=== PATIENT | female | born 1985 | race Caucasian/White ===

== ENCOUNTER 2019-01-06 14:39 | Inpatient (IN) | payer SELFPAY ==
[2019-01-06] MEDS ORDERED: Morphine 4 MG/ML VIAL ONE (16:09)
[2019-01-06] MEDS ORDERED: Ondansetron PF 4 MG/2 ML Vial ONE ×3 (16:19→21:31)
--- NOTE | 2019-01-06 19:08 | MRI ---
MRI CERVICAL SPINE WITHOUT CONTRAST: History: Injury. [place] hit head. Comparison: CT cervical spine same day. FINDINGS: Cerebellar tonsils terminate at the level of the foramen magnum. There is airfluid level of the sphen oid sinus with sella variant anatomy. There is a moderate left sided maxillary sinus air fluid level. There is straightening of the cervical spine. There is mild loss of normal signal at C5-6 and C6-7. A t C5-6 is a 9 mm x 4 mm central and bilateral paracentral disc protrusion with abutment of the ventra l cord and narrowing of the spinal canal to approximately 5 mm. Cord edema at the level of C5-6. Ther e is mild subligamentous edema at C5-6 posteriorly adjacent to the disc protrusion. At all other leve ls, there is no neural foraminal or spinal canal narrowing. The paraspinal musculature is symmetric. No edema. No evidence for ligamentous strain. No facet capsu le injury. IMPRESSION: Central and bilateral paracentral disc protrusion at C5-6 with adjacent subligamentous edema. The pro trusion measures 9 mm in transverse and 4 mm in AP dimension with cord abutment and spinal canal narr owing to approximately 5 mm. Low grade edema within the cord. Urgent neurosurgical consultation is re commended. Code CRColin Rehman 6:10 p.m. POS: [facility]
[2019-01-06] MEDS ORDERED: Fentanyl 100 MCG/2 ML VIAL ONE (20:25)
[2019-01-06] MEDS ORDERED: Morphine 4 MG/ML VIAL SLOW IVP PRN ×2 (22:15)
[2019-01-06] MEDS ORDERED: Dextrose 50% Abboject 50 ML SYRINGE SLOW IVP PRN (22:15)
[2019-01-06] MEDS ORDERED: Ondansetron ODT 4 MG TAB PO PRN (22:15)
[2019-01-06] MEDS ORDERED: hydrALAZINE 20 MG/ML VIAL SLOW IVP PRN (22:15)
[2019-01-06] MEDS ORDERED: Ondansetron PF 4 MG/2 ML Vial IVP PRN (22:15)
[2019-01-06] MEDS ORDERED: Promethazine HCl 25 MG/ML VIAL IM PRN ×2 (22:15)
[2019-01-06] MEDS ORDERED: Dextrose 5% in Water 1,000 ML IV PRN (22:15)
[2019-01-06] MEDS ORDERED: Cyclobenzaprine 10 MG TAB PO PRN (22:15)
[2019-01-06 22:24] VITALS: BMI 21.6
[2019-01-06] MEDS ORDERED: Famotidine 20 MG TAB PO SCH (22:30)
[2019-01-06] MEDS ORDERED: Scopolamine 1.5 mg/72 hour Patch TD SCH (23:00)
[2019-01-06] MEDS: Acetaminophen 1,000 MG in Premix Bag 1 BAG IVPB SCH (23:17)
[2019-01-07] MEDS: Sodium Chloride 0.9% 1,000 ML IV SCH ×2 (00:03→09:19)
--- NOTE | 2019-01-07 01:41 | HP ---
ATTENDING SURGEON: Dr. Marie. CONSULTATIONS: Neurosurgery, Dr. Young. mobile tester, Dr. Ivey. 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 She denies any loss of consciousness, but definitely felt dizzy immediately after impact and was able to ambulate away from the gait and get help. She was taken to the emergency department in [place], where she underwent evaluation and examination who was noted to have contusion to her left supraorbital and frontal scalp areas, maxillary sinus fracture, left orbital roof fracture and basilar skull fracture, central disk herniation at C5-C6 in which she was subsequently then transported to our facility to undergo evaluation by our neurosurgery team. Once here, the patient underwent MRI urgently which confirmed the disk protrusion at C5-C6, with significant spinal canal narrowing, at which time we were asked to admit the patient for pain control and plan surgical procedure in the morning. ALLERGIES: NONE. CURRENT MEDICATIONS: None. PAST MEDICAL HISTORY: None. PAST SURGICAL HISTORY: . SOCIAL HISTORY: The patient denies drug, tobacco, or alcohol use. She is , has one child and does multiple jobs. REVIEW OF SYSTEMS: A 10-point review of systems is negative as otherwise stated. PHYSICAL EXAMINATION: VITAL SIGNS: Blood pressure 105/64, heart rate 61, respirations 16, oxygen saturation is 96% on room air, and temperature is 98.7. GENERAL: The patient is resting comfortably in bed. She is awake, alert, and oriented x3. Myels Coma Scale is 14. The patient has -1 for eye opening. She reports feeling nauseated and has her eyes closed. HEENT: Head shows a contusion to the left forehead and left-sided periorbital ecchymosis. Eyes, extraocular motion intact. PERRLA bilaterally. Ears are atraumatic without discharge. Nose has blood in bilateral nares, more on the left. Oropharynx is clear. NECK: Immobilized and [place] collar was not removed for this examination per neurosurgery's directions. Her trachea is midline. There is no JVD. CHEST: Clear to auscultation with good inspiratory and expiratory efforts. HEART: Regular rate and rhythm. ABDOMEN: Soft, flat, nontender with active bowel sounds. PELVIS: Stable. EXTREMITIES: Neurovascularly intact x4. The patient does have some tingling sensation in her left upper extremity down to the level of her index and middle finger. BACK: By report, atraumatic and nontender. There are no labs to report at this time. RADIOGRAPHIC FINDINGS: CT of the brain without contrast shows extensive left supraorbital and frontal scalp hematoma, opacification of the left frontal sinus, opacification of the left ethmoid air cells and left maxillary sinus. Findings are concerning for left medial and possible inferior orbital fractures. There also appears to be a small amount of gas seen extending into the left supraorbital region and the front subdural or subarachnoid space seen just superior to the cribriform plate and just above the left orbital roof. CT of the facial bones without contrast shows again the left periorbital soft tissue hematoma. There is a nondisplaced fracture seen through the posterior wall of the left frontal sinus. There is also a fracture which extends into the orbital roof. There is a small fragment of bone inferiorly displaced adjacent to the superior rectus muscle seen in the mid orbit. CT of the C-spine without contrast shows no evidence of fracture or traumatic subluxation involving the C-spine. Central disk herniation at C5-C6 with potential for mass-effect upon the cervical cord. MRI of the C-spine without contrast shows central and bilateral paracentral disk protrusion at C5-C6 with adjacent subligamentous edema. The protrusion measures 9 mm in transverse and 4 mm in AP diameter with cord abutment and spinal canal narrowing to approximately 5 mm. ASSESSMENT AND PLAN: 1. Status post livestock trauma, blunt trauma to the left forehead. 2. Central disk herniation at C5-C6 with radiculopathy. 3. Facial contusions. 4. Facial fractures. PLAN: Plan will be to admit the patient to the surgical floor. She will have strict bedrest, pain control, pulmonary toilet, gastritis, mechanical VTE prophylaxis. The patient has been fitted with a well-fitting [place] collar. The evaluation, examination, laboratory, and radiographic findings were discussed with Dr. Marie prior to this dictation. The patient will be n.p.o. after midnight and plan for a surgical procedure tomorrow afternoon with Dr. Young. Job ID: [id number]
[2019-01-07] MEDS: CEFAZOLIN 2 GM in Premix Bag 1 BAG IVPB SCH ×4 (01:43→23:20)
--- NOTE | 2019-01-07 02:48 | CON ---
DATE OF CONSULTATION: This is a 50-minute initial patient evaluation of which greater than 50% of the exam was spent in counseling and coordinating the patient's care. Remainder of the exam was spent in review of the patient's medical records and formulation of treatment plan as well as review of appropriate imaging studies. CHIEF COMPLAINT: Status post blunt facial trauma with left arm decreased sensation, and large acute C5-C6 herniated disk. HISTORY OF PRESENT ILLNESS: Ms. Monge is a pleasant 33-year-old female who presents to [place] [facility] for the above complaints. 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 She immediately began to experience headaches, neck pain, and decreased sensation in the left hand, mainly the first and second fingers. The patient is a transfer from [facility]. She currently complains of headache as well as significant neck pain. She also complains of ulnar aspect decreased sensation with paresthesias as well as decreased sensation and paresthesias into the first, second, and part of the third finger. She states that she has never had any symptoms like this before in regard to severe neck pain and paresthesias in the left arm and these began after she sustained her trauma. Review of the patient's head CT shows small anterior region basilar skull fracture with small amount of pneumocephalus, but no associated hemorrhage. Review of the patient's cervical spine CT shows concerning for herniated disk at C5-C6. An MRI was ordered given the patient's above symptoms. REVIEW OF SYSTEMS: Very large acute herniated disk at the C5-C6 region causing protrusion into the spinal canal with likely T2 signal abnormality. The herniation is paracentral slightly eccentric to the left which explained the patient's symptoms. PHYSICAL EXAMINATION: The patient is awake, alert, and appropriate. She is wearing a trauma collar. She complains of significant neck pain. She has trace weakness into the left hand intrinsics and trace weakness into the arm, mild weakness into the left lateral biceps and deltoid. She has good strength in the bilateral lower extremities. She has decreased sensation to light touch throughout the ulnar aspect of the left wrist and into the first, second, and midway into the third fingers in the left hand. She has ecchymosis around and a large forehead abrasion, indicating significant facial trauma. GCS currently is 15. IMPRESSION AND DIAGNOSES: Status post blunt force trauma to the head and neck resulting in small basilar skull fracture in left anterior region and herniated disk at C5-C6 causing T2 signal abnormality. PLAN: Discussed the patient's case and imaging with Dr. Young. Given the acuity of the patient's symptoms and likely acute nature of the patient's C5-C6 herniated disk, we will take her to surgery tomorrow to perform C5-C6 ACDF. This procedure as well as risks and benefits were discussed in great detail with the patient and her family. She states that she would like to avoid surgery, but certainly understands that this herniation is not going to heal with time and surgery is warranted. We will continue with this urgently and there is T2 signal abnormality and given the size of the herniation, it could potentially become worse with increased Valsalva. At this time, we will place her in a well-fitting [place] collar and she needs to wear this at all times. Our trauma colleagues will admit the patient. She will be n.p.o. at midnight and her surgery has been postponed for the morning. She does not take any blood thinners nor did she use tobacco. Head of bed elevated at 30. She does not require any type of surgical fixation of her skull fracture. This is certainly good news. We will defer to Ophthalmology or Maxillofacial in regard to her left orbital fracture. Please call with any changes in the patient's neurologic status, otherwise again, we will discuss ACDF in full detail again in the morning. Job ID: [id number]
[2019-01-07] MEDS: Acetaminophen 1,000 MG in Premix Bag 1 BAG IVPB SCH ×4 (05:51→23:24)
[2019-01-07] MEDS: Famotidine 20 MG TAB PO SCH ×2 (08:41→21:12)
[2019-01-07] MEDS ORDERED: Rocuronium Bromide 10 MG/ML (10ML VIAL) ONE (08:46)
[2019-01-07] MEDS ORDERED: Glycopyrrolate 0.2 MG/ML 5 ML SYRINGE ONE (08:46)
[2019-01-07] MEDS ORDERED: Dexamethasone 20 MG/5 ML VIAL ONE (08:46)
[2019-01-07] MEDS ORDERED: ePHEDrine 50 MG/ML VIAL ONE (08:46)
[2019-01-07] MEDS ORDERED: Lidocaine 1% PF 5 ML VIAL ONE (08:46)
[2019-01-07] MEDS ORDERED: PROPOFOL 200 MG/20 ML VIAL ONE (08:46)
[2019-01-07] MEDS ORDERED: PHENYLEPHRINE-NS 100 MCG/ML 10 ML SYRINGE ONE (08:46)
[2019-01-07] MEDS ORDERED: Ondansetron PF 4 MG/2 ML Vial ONE (08:46)
[2019-01-07 08:51] LABS: #Basophils 0.1 thou/uL (0.0-0.2); #Eosinphils 0.1 thou/uL (0.0-0.7); #Lymphocytes 1.4 thou/uL (1.20-3.40); #Monocytes 0.3 thou/uL (0.11-0.59); #Neutrophils 2.6 thou/uL (1.40-6.50); %Basophils 1.3 % (0.0-1.0); %Eosinophils 1.3 % (0.0-10.0); %Lymphocytes 32.5 % (21.0-51.0); %Neutrophils 57.9 % (42.0-75.0); Hemoglobin 11.8 g/dL (12.0-16.0); Mean Corpuscular HGB CONC 32.4 g/dL (32.0-36.0); Mean Corpuscular Hemoglobin 30.6 pg (27.0-31.0); Mean Corpuscular Volume 94.5 fL (78.0-98.0); Mean Platelet Volume 8.7 fL (7.4-10.4); Platelet Count 177 thou/uL (130-400); RBC Distribution Width 11.7 % (11.5-14.5); Red Blood Cell (RBC) Count 3.85 mill/uL (4.20-5.40); White Blood Cell (WBC) Count 4.4 thou/uL (4.8-10.8)
[2019-01-07] MEDS ORDERED: Famotidine/PF 20 mg/2ml Vial SLOW IVP SCH (09:00)
[2019-01-07 09:03] LABS: INR-International Normal Ratio 1.1; Prothrombin Time 14.3 SEC (12.0-14.7)
[2019-01-07 09:09] LABS: Anion Gap 7 mmol/L (10-20); BUN (Urea Nitrogen) 9 mg/dL (7.0-18.7); Calc. Creatinine Clearance 92 mL/min (70-130); Calcium 8.2 mg/dL (7.8-10.44); Carbon Dioxide 24 mmol/L (22-29); Chloride 109 mmol/L (98-107); Estimated GFR-MDRD 82; Glucose 79 mg/dL (70-105); Sodium 136 mmol/L (136-145)
--- NOTE | 2019-01-07 11:08 | PRG ---
DATE OF SERVICE: 01/07/2019 This is a 50-minute initial hospital visit note, in which 50 minutes were spent reviewing the imaging, record evaluation, examination of the patient, formulation of plan. Greater than 50% time was spent in counseling on Keke Monge. CHIEF COMPLAINT: Large C5-C6 acute disk extrusion with spinal cord contusion resulting in neck and left upper extremity sensory motor deficit. HISTORY OF PRESENT ILLNESS: I reviewed the notes of my colleague, Mike Norton PA-C and I agree with its content. SUBJECTIVE: Ms. Monge is a 33-year-old woman. She has had intermittent neck pain in the past. She has never had signs or symptoms of radiculopathy or myelopathy into her upper extremities. Yesterday, she was struck while at work with a livestock gate that resulted in the left skull base and orbital fracture with a trace amount of pneumocephalus. There is no associated intracranial bleed of concern. Cervical spine CT was negative for acute abnormality with the exception of what appeared to be a disk extrusion at the C5-C6 segment. Cervical spine MRI confirmed this with a large central C5-C6 disk extrusion with some eccentricity to the left C6 neural foramen, but certainly majority of the compromise was centrally. There was a signal abnormality in the cord. I did not see any evidence for soft tissue or ligamentous injury, but I do suspect given the size of the herniation and the patient's asymptomatic nature prior to the injury and the mechanism of injury that this is an acute herniation. The patient endorses neck and left arm pain in a C6 dermatomal distribution down into the left arm and does have a mild weakness in the left C6 myotome. She has significant neck pain. Otherwise, her exam is laid out by my colleague, Cierra BARRAZA. IMPRESSION AND PLAN: I have let the patient and her know that I would recommend surgery which would be C5-C6 anterior cervical discectomy and fusion. It is a significant disk extrusion with signal abnormality in the cord indicating contusion of the cord and certainly symptomatic resulting in sensory and motor deficit. I am concerned about the nature of the herniation and not treating this surgically and the patient's risk should be extrusion worsen threatening quadriparesis or plegia. They are in agreement and we discussed the goals, indications, risks, alternatives, complications in detail regarding C5-C6 anterior cervical discectomy and fusion including swallowing and speech deficits, temporary and permanent neurologic deficits, and the need for more surgery in the future including, but not limited to infection, CSF leak, wound dehiscence, adjacent segment disease, or instrumentation failure. They understand and wished to proceed with surgery. DIAGNOSES: 1. Acute disk extrusion, C5-C6 with cord compression and contusion with neck and left upper extremity pain, status post blunt trauma to the face. 2. Left skull base and orbital fracture due to blunt trauma. Job ID: [id number]
[2019-01-07] MEDS: traMADol HCl 50 MG TAB PO SCH ×3 (11:24→23:24)
--- NOTE | 2019-01-07 13:02 | PRG ---
DATE OF SERVICE: 01/07/2019 SUBJECTIVE: This is a 33-year-old female, hospital day #2, status post blunt trauma to the left forehead, central disk herniation of C5-C6 with a radiculopathy, facial contusions, and facial fractures. The patient has been n.p.o. since midnight as the patient will be taken to the OR by Dr. Young for a C5-C6 anterior cervical diskectomy and fusion. The patient currently reports pain 7/10. The patient also reports discomfort to the back of her head from the [place] collar. OBJECTIVE: VITAL SIGNS: Temperature 98.1, pulse 51, respirations 16, SpO2 of 99% on room air, and blood pressure 107/72. GENERAL: The patient is awake and alert. Lying supine in bed, moderate pain/distress. HEENT: Contusion to the left forehead and left-sided periorbital ecchymoses. NECK: Immobilized and [place] collar in place. Trachea midline. No JVD. CHEST: Clear to auscultation. Good inspiratory and expiratory effort. HEART: Regular rate and rhythm. Bradycardic. ABDOMEN: Soft, nontender, and nondistended. PELVIS: Stable. EXTREMITIES: Neurovascularly intact x4. The patient with strength 5/5. Improved sensation to the left upper extremity. LABORATORY DATA: WBC 4.4, RBC 3.85, hemoglobin 11.8, and hematocrit 36.4. PT 14.3, INR 1.1, and aPTT 26.0. Sodium 136, potassium 4.0, chloride 109, BUN 9, creatinine 0.80, estimated GFR 82, glucose 79, and calcium 8.2. DIAGNOSTICS: There is no diagnostics to review. IMPRESSION: 1. Status post livestock trauma, blunt trauma to the left forehead. 2. Central disk herniation at C5-C6 with radiculopathy. 3. Facial contusions. 4. Facial fractures. 5. Acute traumatic pain. PLAN: 1. The patient will remain n.p.o. for surgery today by Dr. Young. We will increase the patient's pain regimen. We will have the nursing staff place the patient in a different collar as the [place] collar is way too large for the patient. 2. We will increase the patient's diet as tolerated after surgery. The patient was examined with Dr. Marie during morning rounds. Job ID: [id number]
[2019-01-07] MEDS ORDERED: Fentanyl 100 MCG/2 ML VIAL ONE ×3 (13:08→16:49)
[2019-01-07 13:50] LABS: BHCG - Serum Negative (NEGATIVE); Pregs Control Background? CLEAR/WHITE (CLR/WHITE); Pregs Control Bar Appear? YES (CONTROL BAR)
--- NOTE | 2019-01-07 14:21 | CON ---
DATE OF CONSULTATION: CHIEF COMPLAINT: Facial pain. HISTORY OF PRESENT ILLNESS: This is a 33-year-old female, who was hit in the face by a gate earlier today after some livestock kicked it open, negative loss of consciousness. She was noted to have facial fractures on CT scan in [place], for which I was consulted. PAST MEDICAL HISTORY: None. PAST SURGICAL HISTORY: . SOCIAL HISTORY: The patient denies alcohol, tobacco, or drug abuse. ALLERGIES: NO KNOWN DRUG ALLERGIES. PHYSICAL EXAMINATION: VITAL SIGNS: Stable. She is afebrile. GENERAL: She is awake, alert, and oriented x3. She is in no acute distress. HEENT: Her pupils are equal, round, and reactive to light and accommodation. Her nares are patent bilaterally. There is no crepitus or step deformity of the orbital rims or nasal bones. Her oral opening is good. Her occlusion is good. She has no facial numbness. CT scan of the face shows a left supraorbital rim and small posterior table of the frontal sinus fracture. ASSESSMENT: A 33-year-old female with nondisplaced left superior orbital rim fracture. PLAN: No operative treatment is needed for this fracture. Please call me if you have any questions or concerns. Job ID: [id number]
[2019-01-07] MEDS ORDERED: Thrombin 5000 UNITS/5 ML VIAL ONE (15:30)
[2019-01-07] MEDS ORDERED: Sodium Chloride 0.9% 10 ML ONE (15:34)
[2019-01-07] MEDS ORDERED: Morphine Sulfate 2 MG/ML SYRINGE SLOW IVP PRN (16:40)
[2019-01-07] MEDS ORDERED: Ondansetron HCl/PF 4 MG/2 ML Vial IVP PRN (16:40)
[2019-01-07] MEDS ORDERED: Promethazine HCl 25 MG/ML VIAL IM PRN (16:40)
[2019-01-07] MEDS ORDERED: Promethazine HCl 25 MG/ML VIAL SLOW IVP PRN (16:40)
[2019-01-07] MEDS ORDERED: Ketorolac Tromethamine 30 MG/ML VIAL IVP PRN (16:40)
[2019-01-07] MEDS ORDERED: Meperidine HCl/PF 25 MG/ML VIAL SLOW IVP PRN (16:40)
[2019-01-07] MEDS ORDERED: Promethazine HCl 25 MG/ML VIAL ONE (17:00)
[2019-01-07] MEDS ORDERED: HYDROcodone/Acetaminophen 7.5/325 mg Tablet PO PRN (17:01)
[2019-01-07] MEDS ORDERED: Senokot 8.6 MG TAB PO SCH (21:00)
[2019-01-08] MEDS: traMADol HCl 50 MG TAB PO SCH ×2 (06:05→11:47)
[2019-01-08] MEDS: CEFAZOLIN 2 GM in Premix Bag 1 BAG IVPB SCH (06:13)
--- NOTE | 2019-01-08 07:35 | OP ---
DATE OF PROCEDURE: 01/07/2019 SVP CHIEF MARKETING OFFICER: Mike Norton PA-C PREPROCEDURE DIAGNOSIS: Acute cervical herniated disk, C5-C6 with left arm paresthesias. POSTPROCEDURE DIAGNOSIS: Acute cervical herniated disk, C5-C6 with left arm paresthesias. PROCEDURE PERFORMED: C5-C6 anterior cervical diskectomy and fusion. SPECIMENS: None. ESTIMATED BLOOD LOSS: 25 mL. FINDINGS: Acute cervical herniated disk, C5-C6 with left arm paresthesias. PROCEDURE: Job ID: [id number]
[2019-01-08] MEDS ORDERED: Acetaminophen 500 MG TAB PO SCH (08:45)
[2019-01-08] MEDS ORDERED: Docusate 100 MG CAP PO SCH (09:00)
[2019-01-08] MEDS: Famotidine 20 MG TAB PO SCH (09:22)
[2019-01-08 12:14] VITALS: BP 112/59; TEMP 98.2
--- NOTE | 2019-01-08 14:38 | PRG ---
DATE OF SERVICE: 01/08/2019 SUBJECTIVE: Ms. Monge is postoperative day #1 from C5-C6 ACDF. She is doing much better with improvement in her arm pain and has excellent strength in her left C6 myotome. She would like to go home today. We will remove her drain. We went over both intra and postoperative issues. Job ID: [id number]
--- NOTE | 2019-01-08 14:46 | OP ---
DATE OF PROCEDURE: 01/07/2019 A modifier 57 should be added to this surgery as the decision to operate was made on the day I saw the patient. PRE PROCEDURE DIAGNOSES: Large acute C5-C6 disk extrusion with spinal cord compression and signal abnormality indicative of spinal cord bruise and nerve root compression and left arm pain and weakness following blunt trauma to the head. POSTPROCEDURE DIAGNOSES: Large acute C5-C6 disk extrusion with spinal cord compression and signal abnormality indicative of spinal cord bruise and nerve root compression and left arm pain and weakness following blunt trauma to the head. BEDSPREAD CUTTER HAND: Mike Norton PA-C. PROCEDURES PERFORMED: 1. Anterior C5-C6 diskectomy for decompression of spinal cord and C6 nerve roots. 2. Arthrodesis with interbody spacer placement C5-C6 for spacer, packed with local bone autograft obtained from same incision, allograft. 3. Anterior cervical plate and screw fixation, C5-C6. 4. Use of operative microscope for microdissection. DESCRIPTION OF PROCEDURE: After informed consent was obtained from the patient, the patient was brought to the OR. Proper patient, pause, and identification were carried out. She was placed under excellent anesthesia, positioned supine. We identified the right anterior transverse lucero that would allow for approach to the C5-C6 segment. This region was sterilely cleansed, prepared, and draped. Proper patient, pause, and identification were carried out. The wound was then opened in a combination of sharp, monopolar, and blunt dissection, proceeded lateral to the tracheoesophageal bundle medial to the right carotid sheath. We identified the prevertebral layer of deep cervical fascia and the longus colli muscles swept laterally, identified the C5-C6 segment. Distraction occurred. A diskectomy was then performed with the use of the microscope. Large disk material was removed out of the spinal canal that had been herniated with excellent decompression of the common dural tube and bilateral C6 nerve roots. There was some compression with fragments in the left C6 foramina as well, again achieved excellent decompression. A spacer was then placed following endplate preparation, packed with graft, satisfactory gross and fluoroscopic visualization. Anterior cervical plate and screw fixation occurred. Hemostasis was maximized. The wound was closed in anatomic layers over drain. Job ID: [id number]
--- NOTE | 2019-01-09 05:40 | DIS ---
DATE OF ADMISSION: 01/06/2019 DATE OF DISCHARGE: 01/08/2019 ADMITTING PHYSICIAN: Dr. Brewster. DISCHARGE PHYSICIAN: Dr. Marie. CONSULTS: 1. Neurosurgery, Dr. Young. 2. Oromaxillofacial Surgery, Dr. Ivey. PROCEDURES: CT of brain without contrast shows extensive left supraorbital and frontal scalp hematoma. Findings concerning for left medial and possible inferior orbital fractures. Nondisplaced fracture seen through the posterior wall of the left frontal sinus. Also fracture which extends into the orbital roof. A small fragment of bone inferiorly displaced adjacent to the superior rectus muscle seen in mid orbit. CT of C-spine without contrast shows no evidence of fracture or traumatic subluxation involving the C-spine. Central disk herniation at C5-C6 with potential mass effect upon the cervical cord. MRI of the C-spine without contrast shows central and bilateral paracentral disk protrusion at C5-C6 with adjacent subligamentous edema. The protrusion measures 9 mm in transverse and 4 mm in AP diameter with cord abutment and spinal canal narrowing to approximately 5 mm. On 01/07/2019, C5/C6 anterior cervical diskectomy and fusion by Dr. Young. PRIMARY DIAGNOSES: 1. Status post livestock blunt trauma to the left forehead, central disk herniation at C5-C6 with left arm paresthesia. 2. Facial contusions, facial fractures, nonoperative. DISCHARGE MEDICATIONS: 1. Zofran 4 mg ODT q.6 hours as needed for nausea. 2. Tramadol 50 mg 1 tablet p.o. q.6 hours as needed for pain, #90. 3. [place] 5/325 one tablet p.o. q.6 hours p.r.n. pain, #90, by Dr. Young. 4. Tizanidine 4 mg 1 tablet p.o. q.6 hours p.r.n. muscle spasm, #90. 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 The patient denies any loss of consciousness, but felt dizzy immediately upon impact. The patient was found to have contusion to her left supraorbital and frontal scalp areas, maxillary sinus fractures, left orbital roof fracture, basilar skull fracture, central disk herniation at C5-C6. The patient was evaluated by Neurosurgery. The patient had no unexpected events. The patient reports pain being well controlled. The patient is able to ambulate without difficulty and participate with physical therapy. The patient is currently tolerating regular diet. The patient with improved paresthesia to the left fingers. The patient remains in [place] collar. On the day of discharge, the patient was examined by Dr. Marie. The patient had no complaints nor did the family. The patient's vital signs were stable on the day of discharge and exam was unremarkable including cardiopulmonary and GI exams. The patient was deemed stable for discharge home by Neurosurgery and Trauma Team. DISPOSITION: Stable. DISCHARGE INSTRUCTIONS: 1. Home. 2. Diet: Regular diet. 3. Activity: As tolerated, the patient is to wear [place] collar at all times. 4. Followup: Follow up with Dr. Marie as needed. Follow up with Dr. Young as directed. Call for appointment. Follow up with Dr. Ivey as needed. Job ID: [id number]
== END 2019-01-08 13:05 | disposition home or self-care (01) | DRG 472 ==
LOC: ERS 14:39 → SURG A 19:46
PROVIDERS: ADMIT Surgery; ATTEND Surgery
PROC: 0RG10A0 Fusion of Cervical Vertebral Joint with Interbody Fusion Device, Anterior Approach, Anterior Column, Open Approach (ICD-10-PCS; principal; 2019-01-07)
PROC: 0RB30ZZ Excision of Cervical Vertebral Disc, Open Approach (ICD-10-PCS; 2019-01-07)
DX: M50.122 Cervical disc disorder at C5-C6 level with radiculopathy (principal); S02.102A Fracture of base of skull, left side, initial encounter for closed fracture; S14.109A Unspecified injury at unspecified level of cervical spinal cord, initial encounter; W55.82XA Struck by other mammals, initial encounter
CPT/HCPCS: 36415; 72141; 76000; 84703; 85610; 85730; 96365; 96375; 96376; C1713; C1776; G0390; J0131; J1100; J2001; J2270; J2405; J2550; J2704; J3010; J3490; S0028

== ENCOUNTER 2019-02-24 13:37 | Outpatient (CLI) | payer OTHER ==
--- NOTE | 2019-02-24 14:02 | RAD ---
4 views of cervical spine: 02/24/2019 COMPARISON: None HISTORY: Cervical spine pain, evaluate cervical spine following surgery FINDINGS: Open-mouth odontoid view demonstrates a normal-appearing dens and C1-2 articulation. Anterior discectomy and fusion hardware is present at C5-6. Mild soft tissue swelling of the prevertebral space noted in this region consistent with recent surge ry. No anterolisthesis or retrolisthesis is noted. IMPRESSION: Postoperative change as described above. No acute osseous abnormality.
== END 2019-02-24 13:38 | disposition home or self-care (01) ==
LOC: TBSIIMAG 13:37
PROVIDERS: ATTEND Surgery
DX: M50.10 Cervical disc disorder with radiculopathy, unspecified cervical region (principal); Z98.890 Other specified postprocedural states
CPT/HCPCS: 72040